=== PATIENT | female | born 1945 | race Caucasian/White ===

== ENCOUNTER 2019-01-05 20:56 | Emergency (ER) | payer MEDICARE, OTHER ==
[2019-01-05] MEDS: Ibuprofen 600 MG Tab PO ONE (21:43)
[2019-01-05] MEDS: Bacitracin Oint 1 GM U/D Packet TOP ONE (21:43)
--- NOTE | 2019-01-05 21:44 | EDM.PDOC ---
ED HPI GENERAL MEDICAL PROBLEM - General Chief Complaint: Lower Extremity Injury/Pain Stated Complaint: HURT ANKLE Time Seen by Provider: 01/05/19 21:35 Source of Information: Reports: Patient History Limitations: Reports: No Limitations - History of Present Illness INITIAL COMMENTS - FREE TEXT/NARRATIVE: 73 yo female rolled her R ankle before arrival. Has pain and swelling to the lateral R ankle. No analgesia taken before arrival. Also has an abrasion to the L knee. Tetanus is UTD. Onset: Today Onset Date: 01/05/19 Onset Time: 21:00 Duration: Minutes:, Constant Location: Reports: Lower Extremity, Left, Lower Extremity, Right Quality: Reports: Ache (ankle), Burning (knee) Severity: Moderate Improves with: Reports: None Worsens with: Reports: Movement Context: Reports: Trauma Associated Symptoms: Reports: No Other Symptoms Treatments BUSINESS OFFICE MANAGER: Reports: Cold Therapy Right Ankle Pain Score (Numeric/FACES): 5 - Related Data Allergies Allergy/AdvReac Type Severity Reaction Status Date / Time codeine Allergy Hives Verified 01/05/19 21:26 Penicillins Allergy Rash Verified 01/05/19 21:26 Home Meds: Home Meds Citalopram [Citalopram HBr] 20 mg PO DAILY 01/05/19 [History] Diltiazem HCl [Diltiazem ER] 300 mg PO DAILY 01/05/19 [History] Hydroxychloroquine [Plaquenil] 200 mg PO DAILY 01/05/19 [History] Sodium Bicarbonate 650 mg PO TID 01/05/19 [History] hydroCHLOROthiazide [Hydrochlorothiazide] 12.5 mg PO DAILY 01/05/19 [History] Past Medical History HEENT History: Reports: Cataract, Impaired Vision, Other (See Below) Other HEENT History: wears glasses Cardiovascular History: Reports: Hypertension, [place] [employer] CHEMISTRY History: Reports: Musculoskeletal History: Reports: Osteoporosis Immunologic History: Reports: SLE - Infectious Disease History Infectious Disease History: Reports: Chicken Pox, Shingles - Past Surgical History HEENT Surgical History: Reports: Cataract Surgery GI Surgical History: Reports: Appendectomy, Bariatric Procedure Female Surgical History: Reports: Hysterectomy Social & Family History - Tobacco Use Smoking Status *Q: Never Smoker Second Hand Smoke Exposure: No - Caffeine Use Caffeine Use: Reports: Coffee - Recreational Drug Use Recreational Drug Use: No Review of Systems - Review of Systems Review Of Systems: See Below Constitutional: Reports: No Symptoms Eyes: Reports: No Symptoms Ears: Reports: No Symptoms Nose: Reports: No Symptoms Mouth/Throat: Reports: No Symptoms Respiratory: Reports: No Symptoms Cardiovascular: Reports: No Symptoms GI/Abdominal: Reports: No Symptoms Musculoskeletal: Reports: Joint Pain (R lateral ankle) Skin: Reports: Wound (abrasion L anterior knee) Neurological: Reports: No Symptoms Psychiatric: Reports: No Symptoms ED EXAM, GENERAL - Physical Exam Exam: See Below Exam Limited By: No Limitations General Appearance: Alert, WD/WN, No Apparent Distress Eye Exam: Bilateral Eye: Normal Inspection Nose: Normal Inspection Throat/Mouth: Normal Voice, No Airway Compromise Head: Atraumatic, Normocephalic Neck: Normal Inspection Respiratory/Chest: No Respiratory Distress, No Accessory Muscle Use Cardiovascular: Regular Rate, Rhythm Extremities: Joint Swelling (R lateral ankle swelling. No lateral foot or proximal fibula pain. No medial ankle pain. ). No: Increased Warmth Neurological: Alert, Oriented, CN II-XII Intact, Normal Cognition, No Motor/ Sensory Deficits Psychiatric: Normal Affect, Normal Mood Skin Exam: Warm, Dry, No Rash, Wound/Incision (abrasion L anterior knee about 2 cm in diameter. ) Course - Vital Signs Text/Narrative:: cam walker applied, able to walk without issue in the ER Last Recorded V/S: Last Vital Signs Temp 35.9 C 01/05/19 22:13 Pulse 71 01/05/19 22:13 Resp 12 01/05/19 22:13 BP 168/54 H 01/05/19 22:13 Pulse Ox 95 01/05/19 22:13 - Orders/Labs/Meds Meds: Medications Discontinued Medications Generic Name Dose Route Start Last Admin Trade Name Mikeq PRN Reason Stop Dose Admin Bacitracin 1 dose 01/05/19 21:39 01/05/19 21:43 Bacitracin Oint 1 Gm TOP 01/05/19 21:40 1 dose ONETIME ONE Administration Ibuprofen 600 mg 01/05/19 21:39 01/05/19 21:43 Motrin PO 01/05/19 21:40 600 mg ONETIME ONE Administration - Radiology Interpretation Free Text/Narrative:: R ankle X-ray: non-displaced distal fibula fx. Departure - Departure Time of Disposition: 22:35 Disposition: Home, Self-Care 01 Condition: Good Clinical Impression: Fractured lateral malleolus Qualifiers: Encounter type: initial encounter Fracture type: closed Fracture alignment: nondisplaced Laterality: right Qualified Code(s): S82.64XA - Nondisplaced fracture of lateral malleolus of right fibula, initial encounter for closed fracture - Discharge Information *PRESCRIPTION DRUG MONITORING PROGRAM REVIEWED*: No *COPY OF PRESCRIPTION DRUG MONITORING REPORT IN PATIENT KRUPA: No Instructions: Ankle Fracture, [id number] Referrals: Pedro Luis Benton MD [Primary Care Provider] - Forms: ED Department Discharge Additional Instructions: Keep your ankle elevated above your heart as much as possible. Take acetaminophen 1000 mg every 6 hrs and/or ibuprofen 400-600 mg every 6 hrs with food for added pain relief. F/U with orthopedics within the week. Wear your Cam Walker with any attempts at weight bearing.
--- NOTE | 2019-01-05 22:17 | CRLCR ---
INDICATION: Fall, lateral ankle pain and swelling TECHNIQUE: Ankle radiograph 3 views right COMPARISON: None FINDINGS: Bone: There is a nondisplaced transverse fracture in the lateral malleolus present. Joint: The ankle mortise joint and the visualized hindfoot joints are unremarkable in appearance. No significant ankle effusion is seen. Soft tissue: Moderate lateral soft tissue swelling is seen. No radiopaque foreign bodies are seen. IMPRESSION: 1. There is a nondisplaced transverse fracture in the lateral malleolus present. Dictated by Jovanny Benoit MD @ 01/05/2019 10:16:27 PM Dictated by: Jovanny Benoit MD @ 01/05/2019 22:16:29 (Electronically Signed)
== END 2019-01-05 22:41 | disposition home or self-care (01) ==
LOC: JP.ED 20:56
DX: S82.64XA Nondisplaced fracture of lateral malleolus of right fibula, initial encounter for closed fracture (principal); S80.212A Abrasion, left knee, initial encounter; I10 Essential (primary) hypertension; I25.2 Old myocardial infarction; Z88.5 Allergy status to narcotic agent; Z88.0 Allergy status to penicillin; Z79.899 Other long term (current) drug therapy; X50.1XXA Overexertion from prolonged static or awkward postures, initial encounter
CPT/HCPCS: 73610; 99283; A9270